=== PATIENT | female | born 1935 | race Caucasian/White ===

== ENCOUNTER 2019-04-27 23:20 | Emergency (ER) | payer MEDICARE, OTHER ==
--- NOTE | 2019-04-27 23:49 | EDM.PDOC ---
ED HPI GENERAL MEDICAL PROBLEM - General Chief Complaint: General Stated Complaint: Left neck, shoulder, upper chest, rib pain Time Seen by Provider: 04/27/19 23:35 Source of Information: Reports: Patient, RN, RN Notes Reviewed History Limitations: Reports: No Limitations - History of Present Illness INITIAL COMMENTS - FREE TEXT/NARRATIVE: Patient presents to the ED at [facility] for the evaluation of left neck pain, left side rib pain, and significant sinus pressure/pain. Patient states the sinus issues have been occurring for the past 6 months. She has been on a couple of different abx. She denies any injury or trauma. She took to Tylenol ES just prior to presentation. She has a dry non-productive cough. She states her mouth feels very dry. No eye or ear symptoms. No know fevers or chills. She denies any SOB or cardiac chest pain. She has been trying to stay well hydrated with good PO fluid intake. No close family members or contact with similar symptoms. She states she has an appointment with her PCP in the morning for her current symptoms. Onset Date: 04/27/19 - Related Data Allergies Allergy/AdvReac Type Severity Reaction Status Date / Time acetaminophen Allergy Other Verified 04/27/19 23:36 [From Lorcet (hydrocodone)] codeine Allergy Nausea and Verified 04/27/19 23:36 Vomiting hydrocodone bitartrate Allergy Other Verified 04/27/19 23:36 [From Lorcet (hydrocodone)] tape Allergy Rash Uncoded 04/27/19 23:36 Home Meds: Home Meds Albuterol [Proair HFA] 1 - 2 puff INH Q4H PRN 12/09/14 [History] Anastrozole 1 tab PO DAILY 12/09/14 [History] Calcium Carbonate [Calcium] 500 mg PO BID 12/09/14 [History] Cholecalciferol (Vitamin D3) [Vitamin D3] 2,000 unit PO DAILY 12/09/14 [History] Clobetasol [Temovate 0.05% Oint] 1 applic TOP BID 12/09/14 [History] Fish Oil/[place]-3 Fatty Acids [Fish Oil 1,000 MG] 1 cap PO DAILY 12/09/14 [ History] Fluticasone Propionate [Flovent HFA 110 MCG] 1 puff INH BID 12/09/14 [History] Furosemide 1 tab PO DAILY 12/09/14 [History] Multivitamin [Multiple Vitamins] 1 tab PO DAILY 12/09/14 [History] Spironolactone [Aldactone] 25 mg PO DAILY 12/09/14 [History] Vit C/Vit E Ac/Lut/Mineral 1 [Prosight with Lutein] 1 cap PO DAILY 12/09/14 [ History] amLODIPine [Norvasc] 10 mg PO DAILY 12/09/14 [History] atorvaSTATin [Lipitor] 5 mg PO Q48H 12/09/14 [History] ED ROS GENERAL - Review of Systems Review Of Systems: See Below Constitutional: Denies: Fever, Chills HEENT: Reports: Rhinitis, Sinus Problem. Denies: Ear Pain, Eye Discharge, Throat Pain Respiratory: Reports: Pleuritic Chest Pain, Cough. Denies: Shortness of Breath Cardiovascular: Denies: Chest Pain, Palpitations Musculoskeletal: Reports: Muscle Pain, Muscle Stiffness Skin: Reports: No Symptoms Neurological: Reports: No Symptoms ED EXAM, GENERAL - Physical Exam Exam: See Below Exam Limited By: No Limitations General Appearance: Alert, No Apparent Distress Eye Exam: Bilateral Eye: Normal Inspection, PERRL Ears: Normal External Exam, Normal Canal, Normal TMs Nose: Clear Rhinorrhea, Other (bilateral sinus pressure/pain) Throat/Mouth: Normal Oropharynx, Other (Significant posterior oropharynx sinus drainage) Neck: Supple, Limited Range of Motion Respiratory/Chest: No Respiratory Distress, Lungs Clear, Normal Breath Sounds Cardiovascular: Normal Peripheral Pulses, Regular Rate, Rhythm Neurological: Alert, Oriented Skin Exam: Warm, Dry, Intact, Normal Color EKG INTERPRETATION EKG Date: 04/27/19 Time: 23:25 Rhythm: NSR Rate (Beats/Min): 86 Patrick: Normal P-Wave: Present QRS: Normal ST-T: Normal QT: Normal OR/PQ Interval: 0.17 Comparison: No Change EKG Interpretation Comments: 1. NSR Course - Vital Signs Last Recorded V/S: Last Vital Signs Temp 99.3 F 04/27/19 23:20 Pulse 86 04/27/19 23:20 Resp 16 04/27/19 23:20 BP 175/62 H 04/27/19 23:20 Pulse Ox 97 04/27/19 23:20 Departure - Departure Time of Disposition: 00:08 Disposition: Home, Self-Care 01 Condition: Good Clinical Impression: Neck muscle spasm, Costal chondritis Sinusitis Qualifiers: Sinusitis location: pansinusitis Chronicity: chronic Qualified Code(s): J32.4 - Chronic pansinusitis - Discharge Information *PRESCRIPTION DRUG MONITORING PROGRAM REVIEWED*: Not Applicable *COPY OF PRESCRIPTION DRUG MONITORING REPORT IN PATIENT CAROLIN: Not Applicable Instructions: Muscle Cramps and Spasms, [id number], Heat Therapy, Easy-to- Read, Costochondritis Referrals: Gatito Mayfield MD [Physician] - Forms: ED Department Discharge Additional Instructions: 1. Stay well hydrated and rest 2. LOTS of water 3. Keep taking Tylenol 4. See your PCP as scheduled 5. Call us with any questions or concerns 6. Use heat to sore muscles - Problem List Review Problem List Initiated/Reviewed/Updated: Yes - Assessment/Plan Assessment:: Neck Pain Costachondritis Sinusitis Plan: Assessment findings discussed with patient. Normal EKG. No red flags or acute emergency found. Recommend rest, heat to neck, Tylenol, and lots of hydration. Keep appt with PCP for today.
[2019-04-28 00:32] VITALS: BP 150/64
== END 2019-04-28 00:25 | disposition home or self-care (01) ==
LOC: VM.ED 23:20
DX: M94.0 Chondrocostal junction syndrome [Tietze] (principal); M62.838 Other muscle spasm; J32.4 Chronic pansinusitis; Z88.6 Allergy status to analgesic agent; Z88.5 Allergy status to narcotic agent; Z88.8 Allergy status to other drugs, medicaments and biological substances; Z91.09 Other allergy status, other than to drugs and biological substances; Z79.899 Other long term (current) drug therapy
CPT/HCPCS: 93005; 93010; 99283-GF; 99284-25

== ENCOUNTER 2020-10-25 16:05 | Emergency (ER) | payer MEDICARE, OTHER ==
[2020-10-25 16:25] VITALS: BP 138/75; PULSE 84
[2020-10-25] MEDS ORDERED: Albuterol/Ipratropium 3.0-0.5 MG/3 ML Neb Soln NEB ONE (16:32)
--- NOTE | 2020-10-25 17:11 | EDM.PDOC ---
ED HPI GENERAL MEDICAL PROBLEM - General Chief Complaint: Respiratory Problem Stated Complaint: TROUBLE BREATHING Time Seen by Provider: 10/25/20 16:15 Source of Information: Reports: Patient History Limitations: Reports: No Limitations - History of Present Illness INITIAL COMMENTS - FREE TEXT/NARRATIVE: Patient comes emergency department today with complaints of heaviness on her chest. For the past week she has had some heaviness on her chest. She has a cough in the morning and night but no more than normal. She is quite physically active and just very tired and fatigued and gets wheezy when she does any of her physical activity. Nothing really makes the heaviness on her chest worse or better. She has had no fever or chills. No cough or congestion. Some shortnes s of breath with physical exertion. No weakness dizziness lightheadedness. No pain in her chest. No palpitations. No vertigo or dizziness or lightheadedness. No body aches fever or fatigue. She did receive her influenza vaccine this year. No abdominal pain nausea or vomiting. No hematuria dysuria or urinary frequency. No black or tarry stools. She did contact the clinic and she was directed emergently to the ER with her complaints of heaviness on her chest for over a week. She does usually get this about once a year typically has bronchitis and this is exactly what it feels like for her in the past as it is today. No Covid exposure no Covid Symptoms. - Related Data Allergies Allergy/AdvReac Type Severity Reaction Status Date / Time acetaminophen Allergy Other Verified 10/25/20 16:19 [From Lorcet (hydrocodone)] codeine Allergy Nausea and Verified 10/25/20 16:19 Vomiting hydrocodone bitartrate Allergy Other Verified 10/25/20 16:19 [From Lorcet (hydrocodone)] tape Allergy Rash Uncoded 10/25/20 16:19 Home Meds: Home Meds Albuterol [Proair HFA] 1 - 2 puff INH Q4H PRN 12/09/14 [History] Anastrozole 1 tab PO DAILY 12/09/14 [History] Calcium Carbonate [Calcium] 500 mg PO BID 12/09/14 [History] Cholecalciferol (Vitamin D3) [Vitamin D3] 2,000 unit PO DAILY 12/09/14 [History] Clobetasol [Temovate 0.05% Oint] 1 applic TOP BID 12/09/14 [History] Fish Oil/[place]-3 Fatty Acids [Fish Oil 1,000 MG] 1 cap PO DAILY 12/09/14 [History] Fluticasone Propionate [Flovent HFA 110 MCG] 1 puff INH BID 12/09/14 [History] Furosemide 1 tab PO DAILY 12/09/14 [History] Multivitamin [Multiple Vitamins] 1 tab PO DAILY 12/09/14 [History] Spironolactone [Aldactone] 25 mg PO DAILY 12/09/14 [History] Vit C/Vit E/Lutein/Minerals 1 [Prosight with Lutein] 1 cap PO DAILY 12/09/14 [History] amLODIPine [Norvasc] 10 mg PO DAILY 12/09/14 [History] atorvaSTATin [Lipitor] 5 mg PO Q48H 12/09/14 [History] Azithromycin 250 mg PO DAILY #5 tablet 10/25/20 [Rx] predniSONE [Prednisone] 20 mg PO DAILY #5 tablet 10/25/20 [Rx] Past Medical History HEENT History: Reports: Allergic Rhinitis, Other (See Below) Other HEENT History: Chronic sinus problems Cardiovascular History: Reports: Hypertension Respiratory History: Reports: Asthma Social & Family History - Tobacco Use Tobacco Use Status *Q: Never Tobacco User - Recreational Drug Use Recreational Drug Use: No ED ROS GENERAL - Review of Systems Review Of Systems: Comprehensive ROS is negative, except as noted in HPI. ED EXAM, GENERAL - Physical Exam Exam: See Below Exam Limited By: No Limitations General Appearance: Alert, WD/WN, No Apparent Distress Eye Exam: Left Eye: EOMI, PERRL Ears: Normal External Exam Nose: Normal Inspection Throat/Mouth: Normal Inspection, Normal Lips, Normal Teeth, Normal Oropharynx, Normal Voice, No Airway Compromise Head: Atraumatic, Normocephalic Neck: Normal Inspection, Supple, Non-Tender, Full Range of Motion Respiratory/Chest: No Respiratory Distress, No Accessory Muscle Use, Chest Non- Tender, Wheezing (She does have some faint expiratory wheezing bilaterally in the lower lobes. No rales. No stridor. No increased work of breathing. She is able to speak in full sentences and does not appear dyspneic.). No: Respiratory Distress Cardiovascular: Normal Peripheral Pulses, Regular Rate, Rhythm GI/Abdominal: Normal Bowel Sounds, Soft, Non-Tender (Female) Exam: Deferred Rectal (Female) Exam: Deferred Back Exam: Normal Inspection, Full Range of Motion Extremities: Normal Inspection, Normal Range of Motion, Non-Tender, No Pedal Edema, Normal Capillary Refill Neurological: Alert, Oriented, CN II-XII Intact, Normal Cognition, No Motor/Sensory Deficits Psychiatric: Normal Affect, Normal Mood Skin Exam: Warm, Dry, Intact, Normal Color, No Rash Lymphatic: No Adenopathy #1 Interpretation EKG Date: 10/25/20 Time: 16:04 Rhythm: NSR Rate (Beats/Min): 82 [place]: Normal P-Wave: Present QRS: Normal ST-T: Normal QT: Normal Comparison: No Change Course - Vital Signs Last Recorded V/S: Last Vital Signs Temp 98 F 10/25/20 16:20 Pulse 84 10/25/20 16:20 Resp 16 10/25/20 16:20 BP 138/75 10/25/20 16:20 Pulse Ox 97 10/25/20 16:20 - Orders/Labs/Meds Orders: Active Orders 24 hr Category Date Time Status EKG Documentation Completion [RC] STAT Care 10/25/20 16:32 Active RT Aerosol Therapy [RC] ASDIRECTED Care 10/25/20 16:32 Active Chest wo Cont [CT] Stat Exams 10/25/20 17:31 Taken Albuterol [Ventolin HFA] Med 10/25/20 18:02 Ordered See Dose Instructions INH Q4H PRN Medication Orders Albuterol (Ventolin Hfa) 0 gm INH Q4H PRN PRN Reason: Shortness of Breath Labs: Laboratory Tests 10/25/20 10/25/20 10/25/20 Range/Units 16:31 17:00 17:00 WBC 5.5 (4.0-10.0) x10^3/uL RBC 4.95 (4.00-5.50) x10^6/uL Hgb 14.4 (12.0-16.0) g/dL Hct 42.8 (33.0-47.0) % MCV 86.5 (78.0-93.0) fL MCH 29.1 (26.0-32.0) pg MCHC 33.6 (32.0-36.0) g/dL RDW Coeff of Margaret 13.7 (10.0-15.0) % Plt Count 183 (130-400) x10^3/uL Neut % (Auto) 60.9 (50.0-80.0) % Lymph % (Auto) 18.9 L (25.0-50.0) % [place] % (Auto) 9.5 (2.0-11.0) % Eos % (Auto) 10.0 H (0.0-4.0) % Baso % (Auto) 0.7 (0.2-1.2) % Sodium 138 (136-145) mmol/L Potassium 3.7 (3.5-5.1) mmol/L Chloride 100 (98-107) mmol/L Carbon Dioxide 29 (21-32) mmol/L Anion Gap 12.7 (10-20) mmol/L BUN 18 (7-18) mg/dL Creatinine 1.3 H (0.55-1.02) mg/dL Est Cr Clr Drug Dosing 29.36 mL/min Estimated GFR (MDRD) 39 Glucose 106 (74-106) mg/dL Calcium 9.9 (8.5-10.1) mg/dL Corrected Calcium 9.66 (8.5-10.1) mg/dL Total Bilirubin 0.5 (0.2-1.0) mg/dL AST 18 (15-37) U/L ALT 24 (14-59) U/L Alkaline Phosphatase 80 (46-116) U/L Troponin I < 0.017 (<=0.056) ng/mL C-Reactive Protein < 0.2 (<=0.9) mg/dL Total Protein 7.4 (6.4-8.2) g/dL Albumin 4.3 (3.4-5.0) g/dL Globulin 3.1 Albumin/Globulin Ratio 1.39 SARS CoV-2 RNA Rapid ALYSIA Negative (NEGATIVE) Meds: Medications Generic Name Dose Route Start Last Admin Trade Name Freq PRN Reason Stop Dose Admin Albuterol 0 gm 10/25/20 18:02 Ventolin Hfa INH Q4H PRN Shortness of Breath Discontinued Medications Generic Name Dose Route Start Last Admin Trade Name Freq PRN Reason Stop Dose Admin Albuterol/Ipratropium 3 ml 10/25/20 16:32 10/25/20 17:08 Duoneb 3.0-0.5 Mg/3 Ml NEB 10/25/20 16:33 3 ml ONETIME ONE Administration Azithromycin 500 mg 10/25/20 18:02 Zithromax PO 10/25/20 18:03 ONETIME ONE Prednisone 20 mg 10/25/20 18:02 Prednisone PO 10/25/20 18:03 ONETIME ONE - Radiology Interpretation Free Text/Narrative:: Chest x-ray per radiology shows an air-fluid level in the right lung base was present on the civil geotechnical engineer image from prior CT in likely correlates with area of linear subsegmental atelectasis in the right lower lobe. 14 mm nodular opacity projects over the right lung base. This was not seen on CT scan from June 2020. Noncontrast CT is recommended. Surgical clips in the right mid lung most likely surgical clips in the right axilla that were seen on prior CT. Left lung appears clear. ET of the chest per radiology nodular opacity in the right lung base seen on radiograph is consistent with a calcified benign mass in the right breast overlying the right hemithorax. Slight large meant of a groundglass right lower lobe nodule compared to the prior examination. Consider 3 to 6-month noncontrast CT to assess for stability. Improved atelectasis compared to prior exam. Multiple right renal masses 1 of which is possibly either a complex cyst or solid mass. No acute findings primarily chronic findings. - Re-Assessments/Exams Free Text/Narrative Re-Assessment/Exam: 10/25/20 17:14 COVID negative. Labs drawn. CXR ordered. Duo-neb nebulizer. 10/25/20 18:08 She had complete resolution of her wheezing as well as her heaviness on her chest following the DuoNeb. Chest x-ray concerning for a nodular opacity as well as some chronic subsegmental atelectasis in the right lower lobe CT of the chest recommended. Troponin is negative. The rest of the labs are unremarkable. 10/25/20 18:29 The patient is continued to be asymptomatic following the nebulizer. She is resting comfortably on the cot. I reviewed her CT scan with her that has quite a bit of chronic findings to include some groundglass nodule in the right lower lobe as well as a nodular opacity in the right breast mass tissue. Some atelectasis is improved. Some other chronic findings but nothing acute. We will discharge patient home at this time with close follow-up to ensure following of the nodules identified on the CAT scan today. We will treat her with prednisone azithromycin and Ventolin at home. She is comfortable with this plan and her questions are answered. Departure - Departure Time of Disposition: 18:15 Disposition: Home, Self-Care 01 Clinical Impression: Bronchitis, Incidental lung nodule, greater than or equal to 8mm - Discharge Information Instructions: Acute Bronchitis, Adult, [id number], Pulmonary Nodule, [id number] Referrals: Joanna Modi MD [Primary Care Provider] - Forms: ED Department Discharge Additional Instructions: Albuterol inhaler with a spacer, 2 puffs every 4 hrs as needed for shortness of breath and or wheezing. Sent home from the ED. Prednisone 1 tablet daily for the next 5 days. First dose given in the ED. Rx sent to the pharmacy. Azithromycin, 1 tablet daily for the next 5 days. First dose given in the ED. Rx sent to the pharmacy. Drink plenty of fluids. Rest the next few days. Return to the ED if new or worsening symptoms. Follow up with PCP middle of next week for follow up of the findings of the nodule in your lung which was incidentally found. Sepsis Event Note (ED) - Evaluation Sepsis Screening Result: No Definite Risk - Focused Exam Vital Signs: Vital Signs Temp Pulse Resp BP Pulse Ox 10/25/20 16:20 98 F 84 16 138/75 97 - My Orders Last 24 Hours: My Active Orders 10/25/20 16:32 EKG Documentation Completion [RC] STAT RT Aerosol Therapy [RC] ASDIRECTED 10/25/20 17:31 Chest wo Cont [CT] Stat 10/25/20 18:02 Albuterol [Ventolin HFA] See Dose Instructions INH Q4H PRN - Assessment/Plan Last 24 Hours: My Active Orders 10/25/20 16:32 EKG Documentation Completion [RC] STAT RT Aerosol Therapy [RC] ASDIRECTED 10/25/20 17:31 Chest wo Cont [CT] Stat 10/25/20 18:02 Albuterol [Ventolin HFA] See Dose Instructions INH Q4H PRN
--- NOTE | 2020-10-25 17:26 | CR ---
[id number] RAD/RAD Chest PA And Lateral EXAM: RAD Chest PA And Lateral INDICATION: CHEST PAIN, SHORTNESS OF BREATH. COMPARISON: June 30, 2020. DISCUSSION: Cardiomediastinal silhouette is normal in size and contour. Apparent air-fluid level in the right lung base was present on scissors grinder image from prior CT and likely correlates with areas of linear subsegmental atelectasis in the right lower lobe. 14 mm nodular opacity projects over the right lung base. This was not seen on CT from June 2020. Noncontrast chest CT is recommended for further evaluation. Surgical clips project over the peripheral right midlung. This is most likely surgical clips in the right axilla that were seen on prior CT. Left lung appears clear. No pleural effusion or pneumothorax. IMPRESSION: As above. Jaziel Fernandes MD 10/25/20 [id number] Thank you for allowing us to participate in the care of your patient.
[2020-10-25 17:29] LABS: ANION GAP 12.7 mmol/L (10-20); CHLORIDE,CL 100 mmol/L (98-107); SODIUM,NA 138 mmol/L (136-145)
[2020-10-25] MEDS ORDERED: Azithromycin 250 MG Tab PO ONE (18:02)
[2020-10-25] MEDS ORDERED: Albuterol HFA 18 Gm Inhaler INH PRN (18:02)
[2020-10-25] MEDS ORDERED: predniSONE 20 MG Tab PO ONE (18:02)
--- NOTE | 2020-10-25 18:20 | CT ---
[id number] CT/CT Chest WO IV EXAM: CT Chest WO IV CLINICAL DATA: RIGHT LOWER LOBE NODULE, ATELECTASIS. COMPARISON STUDY: June 30, 2020. FINDINGS: Lungs: 21 x 20 mm groundglass right lower lobe nodule (series 2 image 59. This was seen on the prior examination, measuring 20 x 18 mm. Nodular opacity projecting over the right lower lobe on prior examination is consistent with calcified right breast mass in the soft tissues overlying the right hemithorax. Previously seen atelectasis in the right middle lobe has improved and nearly resolved since the prior examination. Mediastinum: No mediastinal or hilar lymphadenopathy. 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 Bones: No acute fracture or compression deformity. Spondylosis. Upper abdomen: Stable simple appearing hepatic cysts. Exophytic hypodense mass arising from the right kidney (series 2 image 98). Density is slightly higher than that of water and nonspecific as it is incompletely evaluated without contrast. Additionally there is a 32 x 34 mm hyperdense mass arising from the right kidney inferior pole (series 2 image 95). Density is approximately 39 Hounsfield units, similar to the adjacent renal parenchyma. Differential diagnosis includes complex (hemorrhagic/proteinaceous cyst) or solid neoplasm. Small sliding-type hiatus hernia. IMPRESSION: Nodular opacity in the right lung base seen on radiograph is consistent with a calcified (benign) mass in the right breast overlying the right hemithorax. Slight enlargement of a groundglass right lower lobe nodule compared to the prior examination. Consider 3-six-month follow-up noncontrast chest CT examination to assess for stability. Improved appearance of right middle lobe atelectasis compared to the prior examination. Multiple right renal masses, one of which is possibly either a complex cyst or solid mass. Other chronic findings are described above. Jaziel Fernandes MD 10/25/20 [id number] Thank you for allowing us to participate in the care of your patient.
== END 2020-10-25 18:38 | disposition home or self-care (01) ==
LOC: SUPCPDRO 16:05 → VM.ED 16:05
DX: J40 Bronchitis, not specified as acute or chronic (principal); R91.1 Solitary pulmonary nodule; I10 Essential (primary) hypertension; Z20.828 Contact with and (suspected) exposure to other viral communicable diseases; Z88.6 Allergy status to analgesic agent; Z88.5 Allergy status to narcotic agent; Z91.048 Other nonmedicinal substance allergy status; Z79.899 Other long term (current) drug therapy
CPT/HCPCS: 36415; 71046; 71250; 80053; 84484; 85025; 86140; 93005; 93010; 99284; 99285-25; A9270-GY; J7512; J7620-GY; U0002

== ENCOUNTER 2022-03-18 09:39 | Emergency (ER) | payer MEDICARE, OTHER ==
[2022-03-18 10:15] VITALS: BP 158/69; PULSE 86
== END 2022-03-18 10:10 | disposition home or self-care (01) ==
LOC: VM.ED 09:39
DX: U07.1 COVID-19 (principal); J45.909 Unspecified asthma, uncomplicated; I10 Essential (primary) hypertension; Z79.899 Other long term (current) drug therapy; Z88.5 Allergy status to narcotic agent; Z88.6 Allergy status to analgesic agent
CPT/HCPCS: 99284; U0002

== ENCOUNTER 2022-12-04 15:12 | Emergency (ER) | payer MEDICARE, OTHER ==
[2022-12-04 16:32] VITALS: BP 155/78; PULSE 72
== END 2022-12-04 16:09 | disposition home or self-care (01) ==
LOC: VM.ED 15:12
DX: S70.01XA Contusion of right hip, initial encounter (principal); I10 Essential (primary) hypertension; J45.909 Unspecified asthma, uncomplicated; Z86.16 Personal history of COVID-19; Z79.899 Other long term (current) drug therapy; Z88.6 Allergy status to analgesic agent; Z88.5 Allergy status to narcotic agent; Z91.048 Other nonmedicinal substance allergy status; W18.30XA Fall on same level, unspecified, initial encounter
CPT/HCPCS: 99283